=== PATIENT | male | born 1970 | race Caucasian/White ===

== ENCOUNTER 2019-10-27 15:23 | Emergency (ER) | payer MEDICAID, OTHER ==
[~2019-10-27] VITALS: Ht 177.8 cm; Wt 106.6 kg
[2019-10-27] MEDS ORDERED: cloNIDine HCL 0.1 MG TAB PO ONE (16:15)
[2019-10-27 16:25] VITALS: BP 199/115
[2019-10-27] MEDS ORDERED: HYDROcodone-ACET 10/325MG TAB PO ONE (19:00)
== END 2019-10-27 19:23 | disposition home or self-care (01) ==
LOC: EDBD → ER 15:23
DX: S22.42XA Multiple fractures of ribs, left side, initial encounter for closed fracture (principal); I10 Essential (primary) hypertension; W01.0XXA Fall on same level from slipping, tripping and stumbling without subsequent striking against object, initial encounter; Y93.89 Activity, other specified; Y99.8 Other external cause status; Y92.89 Other specified places as the place of occurrence of the external cause
CPT/HCPCS: 71101; 73030; 74176; 93005

== ENCOUNTER 2019-10-30 12:13 | Emergency (ER) | payer MEDICAID ==
[~2019-10-30] VITALS: Ht 177.8 cm; Wt 106.6 kg
[2019-10-30 13:56] VITALS: BP 111/75
[2019-10-30] MEDS ORDERED: HYDROcodone-ACET 10/325MG TAB PO ONE (14:15)
== END 2019-10-30 19:15 | disposition home or self-care (01) ==
LOC: ER 12:19
DX: R07.81 Pleurodynia (principal); I10 Essential (primary) hypertension; Z87.81 Personal history of (healed) traumatic fracture

== ENCOUNTER 2020-05-03 15:56 | Emergency (ER) | payer SELFPAY ==
[~2020-05-03] VITALS: Ht 177.8 cm; Wt 108.9 kg
[2020-05-03 16:05] VITALS: BP 106/72
== END 2020-05-03 17:45 | disposition home or self-care (01) ==
LOC: ER 16:00
DX: I95.9 Hypotension, unspecified (principal); F17.210 Nicotine dependence, cigarettes, uncomplicated; I10 Essential (primary) hypertension
CPT/HCPCS: 70450; 93005

== ENCOUNTER 2022-01-24 09:25 | Emergency (ER) | payer MEDICAID ==
[~2022-01-24] VITALS: Ht 177.8 cm; Wt 90.7 kg
[2022-01-24 10:18] VITALS: BP 130/83
== END 2022-01-24 10:26 | disposition left against medical advice (07) ==
LOC: ER 09:25
DX: I10 Essential (primary) hypertension (principal); R11.10 Vomiting, unspecified; Z53.21 Procedure and treatment not carried out due to patient leaving prior to being seen by health care provider